=== PATIENT | female | born 1980 | race African-American/Black ===

== ENCOUNTER 2021-09-27 20:41 | Emergency (ER) | payer MEDICARE, MEDICAID ==
[~2021-09-27] VITALS: Ht 167.6 cm; Wt 65.0 kg
[2021-09-28] MEDS ORDERED: KETOROLAC 30MG/ML VIAL IM ONE (00:30)
[2021-09-28] MEDS ORDERED: IBUP-2029 MT (00:38)
[2021-09-28] MEDS ORDERED: AMOX-424 MT (00:38)
[2021-09-28 02:52] VITALS: BP 138/83
== END 2021-09-28 02:55 | disposition home or self-care (01) ==
LOC: ER 20:41
DX: K08.89 Other specified disorders of teeth and supporting structures (principal); Z79.899 Other long term (current) drug therapy
CPT/HCPCS: 81025; 96372; 99283; J1885